=== PATIENT | female | born 1965 | race Caucasian/White ===

== ENCOUNTER 2018-09-01 10:16 | Inpatient (IN) | payer BC, OTHER ==
[~2018-09-01] VITALS: Ht 152.4 cm; Wt 75.3 kg
[2018-09-01] MEDS ORDERED: WELLBUTRIN SR150 MG (10:34)
[2018-09-01] MEDS ORDERED: ZANAFLEX2 MG (10:34)
[2018-09-01] MEDS ORDERED: XANAX1 MG (10:34)
[2018-09-01] MEDS ORDERED: EFFEXOR XR150 MG (10:35)
[2018-09-01] MEDS ORDERED: BACLOFEN10 MG (10:37)
[2018-09-01] MEDS ORDERED: TRAZODONE HCL100 MG (10:38)
== END 2018-09-09 16:10 | disposition home or self-care (01) | DRG 98 ==
LOC: ER 10:16 → SURG 13:30 → SEC-K 13:30 → SURG 20:31 → SURH 09-07 16:17
PROVIDERS: Anesthesiology Pain Medicine; ADMIT Internal Medicine
PROC: BT43ZZZ Ultrasonography of Bilateral Kidneys (ICD-10-PCS; 2018-09-01)
PROC: 8E0ZXY6 Isolation (ICD-10-PCS; 2018-09-01)
PROC: B020ZZZ Computerized Tomography (CT Scan) of Brain (ICD-10-PCS; principal; 2018-09-01 19:00)
PROC: 009U3ZX Drainage of Spinal Canal, Percutaneous Approach, Diagnostic (ICD-10-PCS; 2018-09-03)
DX: G03.1 Chronic meningitis (principal); E87.1 Hypo-osmolality and hyponatremia; F13.230 Sedative, hypnotic or anxiolytic dependence with withdrawal, uncomplicated; F11.23 Opioid dependence with withdrawal; N17.9 Acute kidney failure, unspecified; F44.89 Other dissociative and conversion disorders; F99 Mental disorder, not otherwise specified; R42 Dizziness and giddiness; M79.2 Neuralgia and neuritis, unspecified

== ENCOUNTER 2019-02-11 15:15 | Emergency (ER) | payer BC, OTHER ==
[~2019-02-11] VITALS: Ht 167.6 cm; Wt 81.6 kg
[~2019-02-11 15:15] MED LIST: BACLOFEN10 MG; EFFEXOR XR150 MG; TRAZODONE HCL100 MG; WELLBUTRIN SR150 MG; XANAX1 MG; ZANAFLEX2 MG
[2019-02-11] MEDS ORDERED: TOPAMAX200 MG (15:53)
== END 2019-02-11 21:22 | disposition home or self-care (01) ==
LOC: ER 15:15
DX: R55 Syncope and collapse (principal); G43.809 Other migraine, not intractable, without status migrainosus; G44.89 Other headache syndrome